=== PATIENT | male | born 1970 | race Caucasian/White ===

== ENCOUNTER 2025-02-12 00:47 | Day surgery (SDC) | payer BC, OTHER, SELFPAY ==
[2025-02-12 07:11] VITALS: BP 133/89; PULSE 89; RESP 18; TEMP 36.1; O2SAT 97; BMI 30.4
[2025-02-12] MEDS: LACTATED RINGERS 1,000 ML 150 ML IV CONT (07:21)
--- NOTE | 2025-02-12 08:23 | WPDANESEPPF ---
Anes - Initial Pre Proc Eval Procedure: Operation Date: 02/12/25 08:30 Proposed Procedures p Screening Colonoscopy - Dev Swenson MD Date/Time: 02/12/25 08:23 Surgeon: Dev Swenson MD Pre Op Diagnosis: Screening Patient Data Age: 54 Gender: M Height: 1.65 m Weight: 82.8 kg Last Vital Signs Temp 36.1 C L 02/12/25 07:11 Pulse 89 02/12/25 07:11 Resp 18 02/12/25 07:11 BP 133/89 02/12/25 07:11 Pulse Ox 97 02/12/25 07:11 O2 Del Method Room Air 02/12/25 07:11 Allergies Allergy/AdvReac Type Severity Reaction Status Date / Time No Known Allergies Allergy Verified 02/12/25 07:09 Home Medications ?Medication ?Instructions ?Recorded ?Confirmed ?Type No Home Medications 01/16/25 01/16/25 History Patient hx anesthesia problems: none Family hx anesthesia problems: none Results Review: All pre-operative results and documents have been reviewed as part of the pre-operative evaluation. [facility] Social History Social History Smoking status: Never smoker Substance use type: does not use Living arrangements: with family Spiritual care concerns: No Anes - Eval Final PreProcedure Day of Procedure 02/12/25 08:23 Patient weight: overweight Heart: regular rate and rhythm Lungs: clear to auscultation Airway: Mallampati scale class II Neurological: alert and oriented Last oral intake: >/= 8 hours ASA classification: II Emergent: no Anesthetic plan: proceed Anesthesia type and monitoring: general GIVS and standard monitoring Results Review: All pre-operative results and documents have been reviewed as part of the pre-operative evaluation. Informed Consent: The patient's anesthetic plan and its attendant risks and benefits were discussed with the patient/family/POA. Questions were solicited and answers provided to the satisfaction of the patient/family/POA.
--- NOTE | 2025-02-12 08:46 | PM.HPGS ---
History of Present Illness History of Present Illness Consent: Risks, benefits, and alternatives have been discussed and questions answered. Patient agrees to proceed with procedure. Chief complaint: Screening Narrative: Sherwin Coulter is a 54 year old male who is here for screening colonoscopy. Review of Systems Review of Systems: All 11 review of symptoms negative except the ones mentioned in the H and P [facility] Social History Social History Smoking status: Never smoker Substance use type: does not use Living arrangements: with family Spiritual care concerns: No Meds Home Medications and Allergies Home Medications ?Medication ?Instructions ?Recorded ?Confirmed ?Type No Home Medications 01/16/25 01/16/25 History Allergies Allergy/AdvReac Type Severity Reaction Status Date / Time No Known Allergies Allergy Verified 02/12/25 07:09 Vital Signs Vital Signs - 24 hr 02/12/25 07:11 Temperature 97 F L Pulse Rate 89 Respiratory Rate 18 Blood Pressure 133/89 Pulse Oximetry 97 Oxygen Delivery Room Air Exam Narrative: Patient is comfortable. HENMT: Face/Nose/Sinus: Normal nares present Neck: Neck: supple Chest: Other: Clear to auscultation. Resp: Auscultation: clear to auscultation bilaterally Cardio: Rhythm: regular rhythm GI: GI Palp: Yes Soft to palpation Auscultation: abnormal bowel sounds Assessment and Plan Assessment and plan (1) Normal screening colonoscopy: Code(s): Z12.11 - Encounter for screening for malignant neoplasm of colon Status: Acute Plan [age] year old male who is here for screening colonoscopy.
--- NOTE | 2025-02-12 09:09 | S_PTH ---
PATIENT: Sherwin Coulter LOC: [facility]#:[id number] AGE/SX: 54/M ROOM: RE02/12/[address]: Dev Swenson MD : 1970 BED: DIS: 02/12/2025 SPEC #: [id number] RECD: 02/12/25 10:18 STATUS: LEXIE REMoisés #: [id number] QUE: 02/12/25 09:[address]: Amanda Bustamante DEPT: [facility] Surgical RECD BY: María Echevarria ENTERED: 02/12/25 10:19 SP TYPE: Surgical OTHR DR: Heber Kauffman, MD Dev Swenson MD Tissues: A - Colon Polypectomy Procedures: Hematoxylin and Eosin Stain Gross and Microscopic Level 4
[2025-02-12 09:10] VITALS: BP 114/75; PULSE 69; RESP 14; O2SAT 94
--- NOTE | 2025-02-12 09:12 | P.HP_ITS ---
History of Present Illness History of Present Illness Consent: Risks, benefits, and alternatives have been discussed and questions answered. Patient agrees to proceed with procedure. Chief complaint: Screening Narrative: Sherwin Coulter is a 54 year old male who is here for screening colonoscopy. Review of Systems Review of Systems: All 11 review of symptoms negative except the ones mentioned in the H and P [facility] Social History Social History Smoking status: Never smoker Substance use type: does not use Living arrangements: with family Spiritual care concerns: No Meds Home Medications and Allergies Home Medications ?Medication ?Instructions ?Recorded ?Confirmed ?Type No Home Medications 01/16/25 01/16/25 H istory Allergies Allergy/AdvReac Type Severity Reaction Status Date / Time No Known Allergies Allergy Verified 02/12/25 07:09 Vital Signs Vital Signs - 24 hr 02/12/25 07:11 Temperature 97 F L Pulse Rate 89 Respiratory Rate 18 Blood Pressure 133/89 Pulse Oximetry 97 Oxygen Delivery Room Air Exam Narrative: Patient is comfortable. HENMT: Face/Nose/Sinus: Normal nares present Neck: Neck: supple Chest: Other: Clear to auscultation. Resp: Auscultation: clear to auscultation bilaterally Cardio: Rhythm: regular rhythm GI: GI Palp: Yes Soft to palpation Auscultation: abnormal bowel sounds Assessment and Plan Assessment and plan (1) Encounter for screening colonoscopy: Code(s): Z12.11 - Encounter for screening for malignant neoplasm of colon Status: Acute Plan 54-year-old male who is here for screening colonoscopy.
[2025-02-12 09:20] VITALS: BP 111/67; PULSE 64; RESP 22; O2SAT 96
[2025-02-12 09:30] VITALS: BP 105/65; PULSE 72; RESP 20; O2SAT 100
--- NOTE | 2025-02-12 09:42 | PM.HPGS ---
History of Present Illness History of Present Illness Consent: Risks, benefits, and alternatives have been discussed and questions answered. Patient agrees to proceed with procedure. Chief complaint: Screening Narrative: Sherwin Coulter is a 54 year old male [facility] Social History Social History Smoking status: Never smoker Substance use type: does not use Living arrangements: with family Spiritual care concerns: No Meds Home Medications and Allergies Home Medications ?Medication ?Instructions ?Recorded ?Confirmed ?Type No Home Medications 01/16/25 01/16/25 History Allergies Allergy/AdvReac Type Severity Reaction Status Date / Time No Known Allergies Allergy Verified 02/12/25 07:09 Vital Signs Vital Signs - 24 hr 02/12/25 07:11 02/12/25 09:10 02/12/25 09:20 Temperature 97 F L Pulse Rate 89 69 64 Respiratory Rate 18 14 22 H Blood Pressure 133/89 114/75 111/67 Pulse Oximetry 97 94 96 Oxygen Delivery Room Air Room Air Room Air 02/12/25 09:30 Temperature Pulse Rate 72 Respiratory Rate 20 Blood Pressure 105/65 Pulse Oximetry 100 Oxygen Delivery Room Air
== END 2025-02-12 09:42 | disposition home or self-care (01) ==
PROVIDERS: Internal Medicine Gastroenterology; PCP Internal Medicine; Referring Provider Internal Medicine; Visit Provider Internal Medicine Gastroenterology
PROC: 0DJD8ZZ Inspection of Lower Intestinal Tract, Via Natural or Artificial Opening Endoscopic (ICD-10-PCS; CPT 45378; principal; 2025-02-12 08:30)
DX: Z12.11 Encounter for screening for malignant neoplasm of colon (principal); K63.5 Polyp of colon
CPT/HCPCS: 45385; 88305; J2003; J2704; J7120